=== PATIENT | male | born 1960 | race Caucasian/White ===

== ENCOUNTER → 2022-12-08 | Outpatient (CLI) | payer OTHER ==
[~2022-12-08] MED LIST: DOXYCYCLINE 10100 MG PO; FERROUSAL325 MG PO; FLEXERIL 1010 MG/TAB PO; FOLIC ACID0.4 MG PO; LEVAQUIN 5500 MG/TA1 PO; MULTI VITAMINS1 TAB PO; NEXIUM 40MG40 MG PO; NORCO 325 MG-7.1 TAB PO; OSCAL 500 TAB500 MG PO; PRINZIDE 12.5 M1 TAB PO; SENOKOT S 50 MG1 TAB PO; TYLENOL PM EXTR1 TA1 PO; ULTRAM 50MG TAB50 MG PO; VITAMIN C500 MG PO; XARELTO10 MG PO
== END ==
LOC: MHCPAIN 12:23
DX: M47.894 Other spondylosis, thoracic region (principal); M54.14 Radiculopathy, thoracic region; M54.50 Low back pain, unspecified
CPT/HCPCS: G0463

== ENCOUNTER → 2023-02-23 | Outpatient (CLI) | payer OTHER | LOC: MHCPAIN 08:57 | DX: M47.814 Spondylosis without myelopathy or radiculopathy, thoracic region (principal); M79.18 Myalgia, other site | CPT/HCPCS: G0463 ==